=== PATIENT | male | born 1950 | race Caucasian/White ===

== ENCOUNTER 2023-04-05 06:45 | Day surgery (SDC) | payer MEDICARE, BC, SELFPAY ==
[2023-04-05] MEDS: TETRACAINE 0.5% OPHTH 1 DROP EYE-RIGHT ×2 (06:58→07:07)
[2023-04-05] MEDS: KETOROLAC OPHTH 0.5% 1 DROP EYE-RIGHT ×3 (07:04→07:20)
[2023-04-05 07:06] VITALS: BMI 25.7
[2023-04-05 07:15] VITALS: BP 116/59; PULSE 50; RESP 16; TEMP 36.5; O2SAT 96
--- NOTE | 2023-04-05 07:18 | W.ANESCHARGE ---
Anesthesia Charges Start Date/Time Anesthesia Start Date: 04/05/23 Anesthesia Start Time: 07:51 Stop Date/Time Anesthesia Stop Date: 04/05/23 Anesthesia Stop Time: 08:23 Summary Extremes of Age - Over 70 or under 1: MDA
[2023-04-05] MEDS: SODIUM CHLORIDE 0.9 % (FLUSH) 10 ML SYRINGE IVF (07:44)
--- NOTE | 2023-04-05 07:46 | SUR.PREOP ---
The eye drops brought by the patient (Ketorolac and Prednisolone) are examined and I have determined they are labeled by the patient's pharmacy for this patient as prescribed by the surgeon. The bottles are intact, recently obtained and appear to be correct.
[2023-04-05] MEDS: TETRACAINE 0.5% OPHTH 2 DROP EYE-RIGHT (07:54)
[2023-04-05] MEDS: BALANCED SALT IRRIG SOLN 15 ML EYE-RIGHT (07:57)
--- NOTE | 2023-04-05 08:01 | P.ANES_ITS ---
Anesthesia Charges Start Date/Time Anesthesia Start Date: 04/05/23 Anesthesia Start Time: 07:51 Stop Date/Time Anesthesia Stop Date: 04/05/23 Anesthesia Stop Time: 08:23 Summary Extremes of Age - Over 70 or under 1: [employer]
[2023-04-05 08:20] VITALS: BP 125/62; PULSE 50; RESP 16; TEMP 36.6; O2SAT 97
--- NOTE | 2023-04-05 09:50 | W.PM.OPTPROC ---
Procedure Note Date of procedure: 04/05/23 Will [facility] bill your pro fee for this procedure?: Yes Procedure Description: SURGEON: Marizol Urias MD PREOPERATIVE DIAGNOSIS: Nuclear sclerotic cataract, right eye. POSTOPERATIVE DIAGNOSIS: Nuclear sclerotic cataract, right eye. NAME OF OPERATION: Phacoemulsification of cataract with posterior chamber intraocular lens implantation in the right eye. ANESTHESIA: Topical. ESTIMATED BLOOD LOSS: Less than 2 cc. COMPLICATIONS: None. PATHOLOGY SPECIMEN: None. INDICATIONS: See consult note for details. The risks, benefits and alternatives of the procedure were explained to the patient, who elected to proceed and signed informed consent to do so. PROCEDURE: The patient was brought to the pre-holding area where the right eye was identified as the operative eye. I placed my initials above this eye. The patient received eye drops consisting of 0.5% tetracaine, 1% tropicamide, 10% phenylephrine, and 0.5% ketorolac. The patient was then brought to the operating room where the right eye was again identified as the operative eye. The eye was prepped with Betadine and draped in the usual sterile ophthalmic fashion. A #15 super-sharp blade was used to create a paracentesis site. 1% non-preserved intracameral lidocaine was injected into the anterior chamber. Endocoat was injected into the anterior chamber. A 2.4 mm keratome was used to create a three-plane self-sealing incision 1 mm anterior to the temporal limbus. A cystotome was used to create an anterior capsular leaflet. The Utrata forceps were used to extend this to form a continuous curvilinear capsulorrhexis. Hydrodissection was performed. The cataract was removed with phacoemulsification using the tnrihn-kse-dattzsn technique. The irrigation and aspiration tip was used to remove the remaining cortex. Healon was injected into the capsular bag. An FRANCO ZCB00 intraocular lens of 18.0 diopters was injected into the capsular bag. The irrigation and aspiration tip was used to remove the remaining viscoelastic. Balanced salt solution on a cannula was used to hydrate the wound, and the wound was found to be watertight. The pupil was noted to be round. DISPOSITION: The patient was taken to the recovery room and discharged to home in stable condition. The patient was instructed to call me or go to the emergency department with any sudden change, including dramatic loss of vision, severe pain in the eye or eyebrow region, nausea, or vomiting. The patient will follow up in the clinic tomorrow morning.
== END 2023-04-05 08:59 | disposition home or self-care (01) ==
PROVIDERS: PCP Family Medicine; Visit Provider Ophthalmology
PROC: (CPT 66984; principal; 2023-04-05 06:45)
DX: H25.11 Age-related nuclear cataract, right eye (principal)
CPT/HCPCS: 66984; 00142; 99100; A9270; J2250; J3010; V2632

== ENCOUNTER 2023-07-18 20:12 | Outpatient (CLI) | payer MEDICARE, BC, SELFPAY | END 2023-07-18 20:13 | disposition home or self-care (01) | LOC: SLEEP 20:13 | PROVIDERS: PCP Family Medicine; Visit Provider Internal Medicine | DX: G47.33 Obstructive sleep apnea (adult) (pediatric) (principal) | CPT/HCPCS: 95811 ==

== ENCOUNTER 2024-04-30 12:17 | Emergency (ER) | payer MEDICARE, BC, SELFPAY ==
[2024-04-30 12:25] VITALS: BP 112/67; PULSE 73; RESP 18; TEMP 36.8; O2SAT 95; BMI 30.1
--- NOTE | 2024-04-30 12:38 | ED_ITS ---
HPI - General Adult General Chief complaint: Fall/Minor Trauma Stated complaint: fall - hit head Time Seen by Provider: 04/30/24 12:18 History of Present Illness HPI narrative: Pt was hooking boat up, says he tripped and hit the front of his head approx 4 hours ago. Had glasses on, has cuts on his head. Bruise over left eye, says his vision is impaired. Pt is not on blood thinners. No LOC. Witnessed fall. Pain in right big toe, difficulties walking. 73-year-old man presenting to the emergency department after trip and fall event striking his head. Most injury seem to be related to his eye glasses impacting his face. There was no loss of consciousness. Apparently was attempting to step over the hitch and caught with this foot. Chronically has been having some difficulty ambulating. Has had chronic lower extremity swelling as well. Other than striking his head his major complaint is injury to his right big toe. Has been painful since this fall. He did not pass out. Is not feeling nauseated. Denies neck or back pain. Does have a history of fusions in the cervical and lumbar spine. Is not anticoagulated. No difficulty breathing. No chest or abdominal pain. I do note his knees to be scraped but he says he has thinks this is just skin. Was ambulating after. Denies double vision but blurry vision a little bit from the left eye. Clearly has hematoma in the lid and left-sided lateral subconjunctival hemorrhage. Related Data Home Medications ?Medication ?Instructions ?Recorded ?Confirmed baclofen 20 mg tablet 20 mg PO QID 04/04/23 04/30/24 ferrous sulfate 325 mg (65 mg 325 mg PO DAILY 04/04/23 04/30/24 iron) tablet (FeroSul) fluticasone propionate 50 2 spray intranasal DAILY 04/04/23 04/30/24 mcg/actuation nasal spray,suspension melatonin 5 mg capsule 5 mg PO HS 04/04/23 04/05/23 mercaptopurine 50 mg tablet 100 mg PO DAILY 04/04/23 04/05/23 montelukast 10 mg tablet 10 mg PO DAILY 04/04/23 04/30/24 sertraline 50 mg tablet 50 mg PO QAM 04/30/24 04/30/24 tamsulosin 0.4 mg capsule 0.4 mg PO DAILY 04/30/24 04/30/24 Allergies Allergy/AdvReac Type Severity Reaction Status Date / Time No Known Drug Allergies Allergy Verified 04/04/23 07:02 Review of Systems Status of ROS: Reports: 6 or more systems reviewed and unremarkable except as noted in History and below [facility] Medical History Sleep apnea ?G47.30 - Sleep apnea, unspecified (ICD-10) Ulcerative colitis ?K51.90 - Ulcerative colitis, unspecified, without complications (ICD-10) 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) Altered mental status ?R41.82 - Altered mental status, unspecified (ICD-10) Prostate cancer ?C61 - Malignant neoplasm of prostate (ICD-10) Displacement of lumbar intervertebral disc without myelopathy ?M51.26 - Other intervertebral disc displacement, lumbar region (ICD-10) 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 NAD. Two linear intradermal lacerations and the middle brow consistent with glasses placement. Left a little worse than right. Cleaning arm up they appear to be controlled bleeding. Will not require repair. There is a moderate hematoma over the left eyelid such that it is closing his eye. Manual elevation reveals equal pupils. There briskly reactive and accom modating. He does have a moderate left lateral subconjunctival hemorrhage. Extraocular movements appear to be full. Head otherwise is atraumatic. Neck is nontender. Back nontender. Is breathing easily lungs appear to be clear. Heart in regular rate and rhythm. Abdomen is overweight soft nontender. Lower extremities with light abrasions over both knees without notable swelling or limitations to flexion. Again he had been ambulating. He does have bilateral a little less than 2+ pitting edema. There is a light abrasion behind the lower right calf. The right great toe shows some bruising on the dorsal surface proximal to the IP joint. Rather tender to palpation. Mildly swollen Later re-examination does show plantar bruising of the right great toe Const: Vital Signs, click to edit/add: Vital Signs - 24 hr 04/30/24 12:25 04/30/24 14:10 04/30/24 16:05 Temperature 98.3 F Pulse Rate [Right Pulse Oximeter] 73 58 L 69 Respiratory Rate 18 18 18 Blood Pressure [Ri ght Upper Arm] 112/67 126/70 117/64 Pulse Oximetry 95 94 95 Oxygen Delivery Me thod Room Air Room Air Room Air Documenting provider has reviewed patient's vital signs: yes Course Vital Signs Vital signs: Initial Vital Signs Temperature 98.3 F 04/30/24 12:25 Temperature Source Temporal Artery Scan 04/30/24 12:25 Pulse Rate 73 04/30/24 12:25 Pulse Rhythm Regular 04/30/24 12:25 Respiratory Rate 18 04/30/24 12:25 Blood Pressure 112/67 04/30/24 12:25 Blood Pressure Mean 82 04/30/24 12:25 Blood Pressure Position Sitting 04/30/24 12:25 Pulse Oximetry 95 04/30/24 12:25 Oxygen Delivery Method Room Air 04/30/24 12:25 Vital Signs Temperature 98.3 F 04/30/24 12:25 Pulse Rate 73 04/30/24 12:25 Respiratory Rate 18 04/30/24 12:25 Blood Pressure 112/67 04/30/24 12:25 Pulse Oximetry 95 04/30/24 12:25 Oxygen Delivery Method Room Air 04/30/24 12:25 Temperature 98.3 F 04/30/24 12:25 Pulse Rate 69 04/30/24 16:05 Respiratory Rate 18 04/30/24 16:05 Blood Pressure 117/64 04/30/24 16:05 Pulse Oximetry 95 04/30/24 16:05 Oxygen Delivery Method Room Air 04/30/24 16:05 Medical Decision Making MDM Narrative Medical decision making narrative: Think it would be prudent to scan his head though likely WNL. Would like to image his right toe as well. After cleaning up his brow, no skin repair will be needed. This was apparently a trip and fall event not requiring further evaluation otherwise. He is not anticoagulated. At this time the left eye/lid hematoma is not nor is a subconjunctival hemorrhage restricting eye motion or suggesting retro orbital hematoma. Again he reports no diplopia. Spouse give some acetaminophen prior to arrival. Ice pack here. CT head by my read looks to be absent of any acute abnormality other than some hematoma in the periorbital area the left eye Radiology over-read as below Noncontrast CT of head was performed. Comparison: 04/17/2021. Findings: Brain parenchyma: Normal bush-white matter differentiation. No acute intraparenchymal hemorrhage. No mass effect or midline shift. Mild cerebral volume loss and periventricular white matter hypodensities in keeping with chronic microvascular change, similar to prior Extra-axial spaces: No extra-axial collection. Ventricular system: Unremarkable for age. Paranasal sinuses and mastoid air cells: Clear. Orbits: Globes are intact. No retrobulbar hematoma. Bones: No calvarial fracture. Left periorbital hematoma Impression: 1. Left periorbital hematoma without acute intracranial abnormality identified. 2. Mild cerebral volume loss and findings suggestive of chronic microvascular ischemic change. X-ray of the right great toe by my read is somewhat demineralized. I wonder if there might be a fracture nondisplaced subtle in the distal phalanx of the toe but looks like might be a vascular channel as well Radiology over-read as below Technique: Left foot 3 views. Comparison: None. Findings: Alignment is normal. Diffuse osseous demineralization. No evident fractures or bone lesions. Soft tissues: Unremarkable. No evident focal soft tissue swelling. Impression: No evident acute fracture or traumatic subluxation, though the diffuse osseous demineralization decreases sensitivity for the detection nondisplaced fractures. If there is persistent clinical concern for an acute fracture, this could be further evaluated with a CT. Considering the plantar bruising on the right great toe I would have more concerned about fracture. Certainly more of a problem in somebody already with some gait challenges and that this is the great toe will be sending back for CT imaging CT of the right great toe without contrast. COMPARISON: Same day radiographs. FINDINGS: Bones: Osseous demineralization. There is a nondisplaced fracture involving the great toe distal phalanx (series 4, image 34). This fracture is occult on same-day radiographs. It is difficult to determine whether intra-articular extension is present; however, no definite fracture line is seen extending into the great toe interphalangeal joint. No additional fracture is seen. Regional muscles and tendons: Tendons are normal in course and caliber. Soft tissues: Soft tissue swelling of the great toe. No soft tissue gas. IMPRESSION: Nondisplaced fracture involving the great toe distal phalanx. Considering gait challenges I did consult with orthopedics for further recommendations beyond postop sandal. Hopefully this does not affect his gait too much. Mr. Atkins does already have connection with physical therapy and occupational therapy and will be directed there for follow-up. See patient discharge plan for further discussion Medical Records Medical records reviewed: Yes I reviewed the patient's medical records Discharge Plan Discharge Clinical Impression: Closed head injury, Periorbital hematoma, Abrasion, Fracture of great toe Patient Disposition: Home w/ Parent or Adult Condition: Stable Additional Instructions: I am sorry this happened to you today. Continue to take care with ambulation. Hopefully this postop sandal does not impede your gait too much. If you find yourself more unsteady with this, might be safer not to wear at. Would expect at least 6 weeks to full healing of this toe fracture. I would ice sore areas as discussed a couple of times daily over the next few days. Be seen for new double vision, marked increase in swelling, pain around your eye. Prescriptions: No Action baclofen 20 mg tablet 20 mg PO QID ferrous sulfate [FeroSul] 325 mg (65 mg iron) tablet 325 mg PO DAILY mercaptopurine 50 mg tablet 100 mg PO DAILY montelukast 10 mg tablet 10 mg PO DAILY fluticasone propionate 50 mcg/actuation spray,suspension 2 spray INTRANASAL DAILY melatonin 5 mg capsule 5 mg PO HS tamsulosin 0.4 mg capsule 0.4 mg PO DAILY sertraline 50 mg tablet 50 mg PO QAM Follow Up/Referrals: Bisi Rouse MD [Primary Care Provider] - Stand Alone Forms: Cancer Genetics Info Instructions
--- NOTE | 2024-04-30 12:55 | CRLHL7_ITS ---
For Patients: As a result of the Century Cures Act, medical imaging exams and procedure reports are released immediately into your electronic medical record. You may view this report before your referring provider. If you have questions, please contact your health care provider. Indication: Technique: Left foot 3 views. Comparison: None. Findings: Alignment is normal. Diffuse osseous demineralization. No evident fractures or bone lesions. Soft tissues: Unremarkable. No evident focal soft tissue swelling. Impression: No evident acute fracture or traumatic subluxation, though the diffuse osseous demineralization decreases sensitivity for the detection nondisplaced fractures. If there is persistent clinical concern for an acute fracture, this could be further evaluated with a CT. Dictated by Cody Salguero MD @ 04/30/2024 1:38:39 PM (Electronically Signed)
--- NOTE | 2024-04-30 12:55 | CRLHL7_ITS ---
For Patients: As a result of the Century Cures Act, medical imaging exams and procedure reports are released immediately into your electronic medical record. You may view this report before your referring provider. If you have questions, please contact your health care provider. Indication: Fall, left eyelid hematoma. Technique: Noncontrast CT of head was performed. Comparison: 04/17/2021. Findings: Brain parenchyma: Normal bush-white matter differentiation. No acute intraparenchymal hemorrhage. No mass effect or midline shift. Mild cerebral volume loss and periventricular white matter hypodensities in keeping with chronic microvascular change, similar to prior Extra-axial spaces: No extra-axial collection. Ventricular system: Unremarkable for age. Paranasal sinuses and mastoid air cells: Clear. Orbits: Globes are intact. No retrobulbar hematoma. Bones: No calvarial fracture. Left periorbital hematoma Impression: 1. Left periorbital hematoma without acute intracranial abnormality identified. 2. Mild cerebral volume loss and findings suggestive of chronic microvascular ischemic change. Please note that all CT scans at this facility use dose modulation, iterative reconstruction, and/or weight-based dosing when appropriate to reduce radiation dose to as low as reasonably achievable. Dictated by Mary Sheikh MD @ 04/30/2024 1:43:16 PM (Electronically Signed)
[2024-04-30 14:10] VITALS: BP 126/70; PULSE 58; RESP 18; O2SAT 94
--- NOTE | 2024-04-30 14:29 | CRLHL7_ITS ---
For Patients: As a result of the Cures Act, medical imaging exams and procedure reports are released immediately into your electronic medical record. You may view this report before your referring provider. If you have questions, please contact your health care provider. INDICATION: Evaluate for fracture. TECHNIQUE: CT of the right great toe without contrast. COMPARISON: Same day radiographs. FINDINGS: Bones: Osseous demineralization. There is a nondisplaced fracture involving the great toe distal phalanx (series 4, image 34). This fracture is occult on same-day radiographs. It is difficult to determine whether intra-articular extension is present; however, no definite fracture line is seen extending into the great toe interphalangeal joint. No additional fracture is seen. Regional muscles and tendons: Tendons are normal in course and caliber. Soft tissues: Soft tissue swelling of the great toe. No soft tissue gas. IMPRESSION: Nondisplaced fracture involving the great toe distal phalanx. Please note that all CT scans at this facility use dose modulation, iterative reconstruction, and/or weight-based dosing when appropriate to reduce radiation dose to as low as reasonably achievable. Dictated by Mary Sheikh MD @ 04/30/2024 3:03:55 PM (Electronically Signed)
[2024-04-30 16:05] VITALS: BP 117/64; PULSE 69; RESP 18; O2SAT 95
== END 2024-04-30 16:09 | disposition home or self-care (01) ==
PROVIDERS: Emergency Provider Family Medicine; PCP Family Medicine
DX: S00.12XA Contusion of left eyelid and periocular area, initial encounter (principal); S92.414A Nondisplaced fracture of proximal phalanx of right great toe, initial encounter for closed fracture; W01.10XA Fall on same level from slipping, tripping and stumbling with subsequent striking against unspecified object, initial encounter
CPT/HCPCS: 70450; 73660; 73700; 99284

== ENCOUNTER 2024-06-05 15:45 | Outpatient (RCR) | payer MEDICARE, BC, SELFPAY | END 2024-10-03 23:59 | disposition home or self-care (01) | PROVIDERS: PCP Family Medicine; Visit Provider Family Medicine | DX: I69.351 Hemiplegia and hemiparesis following cerebral infarction affecting right dominant side (principal); R26.89 Other abnormalities of gait and mobility; I69.398 Other sequelae of cerebral infarction; S14.125D Central cord syndrome at C5 level of cervical spinal cord, subsequent encounter; R53.1 Weakness; Z51.89 Encounter for other specified aftercare | CPT/HCPCS: 97110; 97116; 97161; 97165; 97535 ==

== ENCOUNTER 2025-08-20 14:33 | Observation (INO) | payer MEDICARE, BC, SELFPAY ==
[2025-08-20] VITALS (20 sets, daily range): BP systolic 95–130; BP diastolic 42–63; PULSE 56–83; RESP 16–18; TEMP 36.7–36.9; O2SAT 92–97; BMI 30.1
--- OUTSIDE RECORDS SUMMARY | 2025-08-20 14:36 | XMS_ITS | Encounter Summary ---
Author Organization [place] Address [address] [place] [address]. 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 Name Role Phone Scott Light Primary Care Provider Unavailabl e Encounter Details Date Type Department Care Team (Late st Contact Info) Description 02/08/2021 External Order Results [facility] [address] [place] [id number] Outside, Provider Social History Tobacco Use Types Packs/Day Years Used Date Smoking Tobacco: Never Assessed Sex and Gender Information Value Date Recorded Sex Assigned at Not on file Legal Sex Male 1:12 PM CDT Gender Identity Not on file Sexual Orientation Not on file COVID-19 Exposure Response Date Recorded In the last month, have you been in contact with someone who was confirmed or suspected to have Coronavirus / COVID-19? No / Unsure 02/11/2021 5:40 AM CDT documented as of this encounter Plan of Treatment Not on file documented as of this encounter Procedures Procedure Name Priority Date/Time Associated Diagnosis Comments COVID-19 VIRUS (CORONAVIRUS) BY PCR (EXTERNAL RESULT) Routine 02/08/2021 2:03 PM CDT documented in this encounter Results * COVID-19 Virus (Coronavirus) by PCR (External Result) (02/08/2021 2:03 PM CDT) COVID-19 Virus by PCR (External Result) Negative Negative COVID-19 EXTERNAL RESULTS 02/08/2021 2:03 PM CDT Narrative LISA PFT - 02/09/2021 4:32 PM CDT Verified by Argelia Ferrer on 02/09/2021 TESTING LABORATORY [facility] [address] [facility] [id number] [place] Patient Reported LABORATORY Edited Result - Final CHARMAINETai PFT COVID-19 EXTERNAL RESULTS COVID-19 External Result Scanned into Patient Record by [employer] Refer to Result Comment/Narrative for exact performing laboratory [address] documented in this encounter Visit Diagnoses Not on filedocumented in this encounter Care Teams Soaking Tank Worker Relationship Specialty Start Date End Date Scott Light PCP - General Family Medicine 01/19/21 documented as of this encounter
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
--- OUTSIDE RECORDS SUMMARY | 2025-08-20 14:36 | XMS_ITS | Data Portability ---
Author Organization [place] - [facility], [facility] Address [address] [place] [address] Assessment Encounter Date Assessment Date Assessment LastModified by Organization Details LastModified Time 10/28/2020 10/28/2020 70M with high risk prostate cancer (cT1c, PSA 5.68, Carlton 4+4 = 8) I had a discussion with the patient and his Marylin about the details of robotic prostatectomy and that this will involve removing his prostate, seminal vesicles and pelvic lymph nodes. We discussed that while the goal of this operation is to cure his cancer, in some cases this is not possible and he may require additional treatments for his cancer. We discussed possible effects on urinary function including temporary and sometimes permanent incontinence and the possibility of erectile dysfunction. We discussed risks of the procedure including urine leak, lymphocele, blood loss requiring transfusion, injury to nerves, blood vessels, or bowel that could require additional procedures. We discussed risk of infection. We also discussed risks of anesthesia including blood clots, cardiopulmonary complications, and the risk of mortality. Given his ongoing issues with ulcerative colitis including the distal rectum I would also recommend waiting a period of time prior to considering surgery. There is undoubtedly a lot of inflammation in this area may make the dissection more difficult and increase the risk of rectal injury. Incidentally he has had SpaceOAR gel placed and is not clear exactly how this will alter surgical plans but presumably should not cause any undue issue as long as there is not significant adhesion to the anterior rectal wall. I have recommended that the patient continue with ADT at this time and that we follow-up in approximately 6 weeks to review how he was doing with respect to his bowel function. If he is doing much better at that time can consider scheduling robotic prostatectomy at that time. Alternatively he is still mostly interested in radiation if possible and if cleared for radiation he may proceed with that. 50 minutes total time including chart review, review of records from [facility], and discussion of treatment options particularly robotic prostatectomy with the patient and his . ginger Not available 10/28/2020 17:59:28 12/10/2020 12/10/2020 70M with high risk prostate cancer (cT1c, PSA 5.68, Maynard 4+4 = 8) He has decided to move ahead with surgery. Will be off prednisone next couple weeks hopefully. Could potentially consider RALP in 6-8 weeks if continues to do well. Discussed risks of surgery. There is undoubtedly a lot of inflammation in this area may make the dissection more difficult and increase the risk of rectal injury. Incidentally he has had SpaceOAR gel placed and is not clear exactly how this will alter surgical plans but presumably should not cause any undue issue as long as there is not significant adhesion to the anterior rectal wall. - recommend MRI prostate and PSA prior to surgery to be sure no significant change prior - RALP + PLND in 6-8 weeks 21 minutes total time including chart review, review of records from [facility], and discussion of treatment options. ginger Not available 12/10/2020 18:21:25 02/22/2021 02/22/2021 70M with [id number] 0 Carlton 3+3=6 prostate cancer s/p RALP 02/11/21 (-sms, 0/3 LN, biopsy Maynard 4+4=8, had neoadj ADT) Discussed pathology report, risk of recurrence, need for ongoing follow-up. Minimal residual disease likely from excellent response to ADT. 1) Prostate cancer - f/u 6 weeks with PSA - Sarah - he will discuss diuretics and UC with his GI provider ginger Not available 02/22/2021 15:12:31 04/07/2021 04/07/2021 70M with [id number] 0 Maynard 3+3=6 prostate cancer s/p RALP 02/11/21 (-sms, 0/3 LN, biopsy Maynard 4+4=8, had neoadj ADT). MARITA. 1) Prostate cancer - f/u 4 months with PSA 2) Left pelvic lymphocele - to [facility]; will need LLE u/s to rule out DVT, then admit for IR drain placement, possible sclerosis [email or web address] Not available 04/07/2021 14:49:04 08/05/2021 08/05/2021 70M with [id number] 0 Carlton 3+3=6 prostate cancer s/p RALP 02/11/21 (-sms, 0/3 LN, biopsy Carlton 4+4=8, had neoadj ADT). MARITA. 1) Prostate cancer - f/u 6 months with PSA, can be with Dr Jacob in [place] 2) Left pelvic lymphocele - resolved [email or web address] Not available 08/05/2021 10:32:15 Plan of Treatment Reminders Order Date Submit Date Provider Last Modified By Organization Details Last Modified Time Details Appointments None record ed. Lab PSA, serum or plasma 2020 021 [email or web address] Not available 10:32:48 PSA, serum or plasma 2020 021 [email or web address] Not available 14:03:44 Referral None record ed. Procedures None record ed. Surgeries None record ed. Imaging MRI, prosta te, w/wo contra st 2020 021 [facility] Radiology Department, [address] [place], [address], 16:19:17 Medication Orders None record ed. Patient TargetsNo targets recorded. Patient InstructionsNo instructions recorded. Reason for Referral None Reported. Results Created Date Observation Date Name Description Value Unit Range Abnormal Flag Note LastModifiedBy Organization Detail LastModifiedTime 04/07/2004/07/2021 PSA, serum or plasm a PSA, Total <0.04 Not Available [facility] [address], [place], [address], 04/07/2021 14:03:27 08/05/20 21 08/05/2021 PSA, serum or plasm a PSA, Total <0.04 ng/ml Not Available [facility] [address], [place], [address], 08/05/2021 09:58:31 02/05/20 21 02/02/2021 MRI, prost ate, w/wo contr ast No observ ation record ed. Formerly [facility] Radiology Department [address] [place], [address], 02/11/2021 14:13:40 03/09/20 21 03/03/2021 imagi ng/di agnos tic resul t No observ ation record ed. [email or web address] Not Available 2020 18:19:02 04/08/20 21 04/07/2021 CT, abdom en + pelvi s, w/ contr ast No observ ation record ed. [email or web address] Not Available 04/08 13:34:07 05/05/20 21 05/03/2021 imagi ng/di agnos tic resul t No observ ation record ed. [email or web address] Not Available 2020 09:07:35 05/05/20 21 05/03/2021 CT, pelvi s, w/o contr ast No observ ation record ed. [email or web address] Not Available 05/30 21:25:39 05/05/20 CT, abdom en + pelvi s, w/ contr ast No observ ation record ed. Not Available 05/07 15:51:55 05/05/20 21 05/03/2021 inter venti onal radio logy scler otic injec tion (PROC ) No observ ation record ed. [email or web address] Not Available 05/30 21:22:54 10/10/19 22 02/02/2021 MRI, pelvi s, w/wo contr ast No observ ation record ed. [email or web address] Raghavendra Perez MD [address] [place], [address], 10/15/2021 17:46:49 Result Notes None recorded. Problems Name Problem SNOMED Code Status Onset Date Resolution Date Notes Provider Name and Address Organization Details Recorded Time Malignant neoplasm of prostate 249474290 Active 021 Ezekiel solis MD, PHD [address] [place] [address], [place], [address], [facility] 17:59:34 Problem Notes None recorded. Procedures Surgical History Date Name Laterality Status Provider Name and Address Organization Details Recorded Time 1 Blood Draw/DRUM CARRIER/PSA RESULTS completed Leeann Buchanan [facility] 08/05/2021 09:58:27 1 Blood Draw/DRUM CARRIER/PSA RESULTS completed Ezekiel Daigle MD, PHD [address] [place] [address],[address], [place], [address], [facility] 04/07/2021 14:03:23 1 Irene Catheter Removal completed Anamika Walters [facility] 02/22/2021 14:54:57 0 Prostate Biopsy Procedure completed Dereje Jacob MD [address],[facility] [address], [place], [address], [facility] 03/17/2020 18:17:28 Imaging Results None recorded. Procedure Notes None recorded. Medical Equipment None Reported. Allergies No known drug allergies Medications Name Sig Start Date Stop Date Status Note LastModified by Organization Details LastModified Time furosemide 40 mg tablet TAKE ONE TABLET BY MOUTH EVERY MORNING active Not Available Not Available No t Available mesalamine 4 gram/60 mL enema INSERT 60 ML (4 GRAM TOTAL) INTO THE RECTUM AT BEDTIME. active Not Available Not Available No t Available bicalutamid e 50 mg tablet 10/28 completed Not Available Not Available Not Available prednisone 10 mg tablet TAKE 4 TABLETS BY MOUTH DAILY WITH A MEAL active Not Available Not Available No t Available ofloxacin 0.3 % eye drops 10/28 completed Not Available Not Available Not Available Remicade 100 mg intravenous solution Inject by intraveno us route. active Not Available Not Available No t Available ciprofloxac in 500 mg tablet 08/05 completed Not Available Not Available Not Available baclofen 20 mg tablet TAKE 1 TABLET 4 TO 5 TIMES DAILY active Not Available Not Available No t Available ketorolac 0.5 % eye drops 10/28 completed Not Available Not Available Not Available oxycodone-a cetaminophe n 5 mg-325 mg tablet 10/28 completed Not Available Not Available Not Available ceftriaxone 1 gram solution for injection Take 1 g by injection route. 10/28 completed Not Available Not Available Not Available prednisolon e acetate 1 % eye drops,suspe nsion 10/28 completed Not Available Not Available Not Available tamsulosin 0.4 mg capsule active Not Available Not Available Not Available pantoprazol e 40 mg tablet,osmany yed release 10/28 completed Not Available Not Available Not Available mercaptopur ine 50 mg tablet active Not Available Not Available Not Available montelukast 10 mg tablet TAKE 1 TABLET BY MOUTH AT BEDTIME. 10/28 completed Not Available Not Available Not Available furosemide 20 mg tablet TAKE 1 TABLET UP TO TWICE A WEEK NEEDED FOR SWELLING DUE TO PREDNISON E 04/07 completed Not Available Not Available Not Available lorazepam 1 mg tablet 10/28 completed Not Available Not Available Not Available amoxicillin 875 mg-potassiu m clavulanate 125 mg tablet 10/28 completed Not Available Not Available Not Available oxycodone 5 mg tablet TAKE ONE TABLET BY MOUTH EVERY 6 HOURS NEEDED FOR BREAK THROUGH PAIN active Not Available Not Available No t Available mesalamine 1,000 mg rectal suppository active Not Available Not Available Not Available Vitamin D active Not Available Not Cande ilable Not Available mesalamine 1.2 gram tablet,osmany yed release TAKE 4 TABLETS BY MOUTH ONCE DAILY WITH A MEAL. 04/07 completed Not Available Not Available Not Available peg 3350-electr olytes 236 gram-22.74 gram-6.74 gram-5.86 gram solution DRINK 3 QUARTS THE DAY BEFORE PROCEDURE & 1 QUART 6 HOURS PRIOR TO PROCEDURE 10/28 completed Not Available Not Available Not Available Venofer 200 mg iron/10 mL intravenous solution Inject by intraveno us route. active Not Available Not Available No t Available Vitals Date Recorded Body weight Body mass index (BMI) Body height Provider Name and Address Organization Details Last Updated DateTime 10/28/2020 40391.03 g 24.3 kg/m2 182.88 cm Paola Bullock [place] - [place] [facility] 10/28/2020 16:31:26 Date Recorded Body height Body mass index (BMI) Body weight Provider Name and Address Organization Details Last Updated DateTime 12/10/2020 182.88 cm 24.4 kg/m2 34844.63 g Juany Willingham [facility] 12/10/2020 16:34:40 Date Recorded Body height Body mass index (BMI) Body weight Respiratory rate Provider Name and Address Organization Details Last Updated DateTime 02/22/2021 182.88 cm 24.4 kg/m2 33399.63 g 16 /min Anamika Walters [facility] 02/22/2021 14:17:44 Date Recorded Body height Body mass index (BMI) Body weight Provider Name and Address Organization Details Last Updated DateTime 04/07/2021 182.88 cm 21.8 kg/m2 30866.37 g Ezekiel hyman MD, PHD [address] [place] [address] 04/07/2021 14:01:25 Date Recorded Body mass index (BMI) Body weight Provider Name and Address Organization Details Last Updated DateTime 08/05/2021 23.6 kg/m2 93736.07 g Ezekiel Daigle MD, PHD [address] [place] [address],[address] 08/05/2021 10:02:52 Date Recorded Body height Provider Name an d Address Organization Details Last Updated DateTime 08/05/2021 182.88 cm Leeann Buchanan [facility] 08/05/2021 09:57:52 Social History Question Answer Notes LastModified by Organizat ion Details LastModified Time Tobacco Smoking Status Former Smoker Sade brown [facility] 03/17/2020 16:06:04 How Much Tobacco Do You Chew? None [email or web address] Information not available 12/10/2020 [email or web address] Informatio n not available 12/10/2020 What Was The Date Of Your Most Recent Tobacco Screening? 08/05/2021 [email or web address] Information not available 08/05/2021 Sex: Unknown Functional Status Question Answer Note LastModified by Organizat ion Details LastModified Time Do you or have you ever used smokeless tobacco? Never used smokeless tobacco [email or web address] Information not available 12/10/2020 Do you or have you ever used e-cigarettes or vape? Never used electronic cigarettes [email or web address] Information not available 12/10/2020 Mental Status None recorded. Family History Relationship Description Onset Age of this Age Resolved Age Notes LastModified by Organization Details LastModified Time Father No current problems or disability Not available 16:05:59 Mother No current problems or disability [email or web address] Not available 16:05:59 Medical History Condition Response Other Y Cancer Y Bleeding Disorder Y Immunizations Vaccine Type Date Status Note Provider Nam e and Address Organization Details Recorded Time Pneumococcal conjugate PCV 13 6 completed ASHLEY [facility] 09/10/2020 09:53:16 Past Encounters Encounter ID Performer Location Encounter Start Date Encounter Closed Date Diagnosis/Indication Diagnosis SNOMED-CT Code Diagnosis ICD10 Code Diagnosis IMO Codes Diagnosis Note [id number] Dereje Jacob MD [facility] [employer] [address] [place] [address] 03/17/2020 15:49:56 03/23/2020 11:16:50 Prostate specific antigen above reference range 148851098 R97.20 [id number] Ezekiel yaets MD, PHD [facility] [employer] [address] [place] [address] 10/28/2020 16:01:11 10/30/2020 12:25:15 Malignant neoplasm of prostate 097082196 C61 [id number] Ezekiel yates MD, PHD [facility] [employer] [address] [place] [address] 12/10/2020 16:32:42 12/14/2020 10:48:18 Malignant neoplasm of prostate 586618012 C61 [id number] Ezekiel yates MD, PHD [facility] [address] [facility] [address] [place] [address] 02/22/2021 13:46:33 02/22/2021 15:20:37 Malignant neoplasm of prostate 876549786 C61 [id number] Ezekiel yates MD, PHD [facility] [employer] [address] [place] [address] 04/07/2021 12:44:09 04/08/2021 16:49:17 Malignant neoplasm of prostate 009043317 C61 [id number] Ezekiel yates MD, PHD [facility] [address] [address] 08/05/2021 09:48:27 08/09/2021 09:19:10 Malignant neoplasm of prostate 791343558 C61 Health Concerns Section Related Observation LastModified by Organization Detai ls LastModified Time None Recorded Concern Status LastModified by Organization Details LastModified Time None Recorded Advance Directives Directive None Recorded Payers Insurance Date Sequence Insurance Name Policy Number Policy Castanon Covered Member ID Castanon Member ID Guarantor Name 07/31/2021 2 [place] [employer] Alton Atkins [id number] Alton Atkins 08/09/2021 1 [facility] [id number] Alton Atkins [id number] Alton Atkins Notes Date Note Type Note Provider Name and Address Organization Details Recorded Time 10/28/2020 text/html Mr. Atkins is a 70year-old man with high-risk prostate cancer. PSA 5.68 (02/19/20) Biopsy (03/17/20): 3/12 cores, up to Carlton 4+4=8 in 20% Bone scan 03/24/20: small area uptake right posterior 8th rib CT A/P: mass effcet prostate on bladder, right posterior 8 th rib MRI 77g, lesion right TZ, no CRISTIAN, so SVI, no LAD LUTS: reduced FOS, nocturia x2-4; UDS Qmax 11 ml/sec, PVR 116, Void vol 272 ED: 01/20 Was planning on receiving radiation therapy through the [facility] so started on ADT 06/04/2020. He actually had fiducials placed and SpaceOAR placed on 10/06/2020 but subsequently developed frequent bowel movements up to 10-14 times per day. He had colonoscopy on 10/12/2019 and biopsies showing inflammation consistent with ulcerative colitis. He is started treatment for this but is not noted any improvement in his stooling frequency at this point. Because one of the areas is in the distal rectum he was advised to forego radiation therapy for his prostate cancer at this time and is here to discuss prostatectomy as an alternative option. PMH: Cervical spinal spine fracture 1998, lower extremity edema, GERDPSH: Umbilical hernia repair with mesh Ezekiel Daigle MD, PHD [address], [place], [address], [facility] 10/28/2020 18:00:24 12/10/2020 text/html Mr. Atkins is a 70 year-old man with high-risk prostate cancer. PSA 5.68 (02/19/20)Biopsy (03/17/20): 3/12 cores, up to Maynard 4+4=8 in 20% Bone scan 03/24/20: small area uptake right posterior 8th ribCT A/P: mass effect prostate on bladder, right posterior 8 th rib MRI 77g, lesion right TZ, no CRISTIAN, so SVI, no LAD LUTS: reduced FOS, nocturia x2-4; UDS Qmax 11 ml/sec, PVR 116, Void vol 272ED: 5/5 ADT: weight gain, hot flashes Was planning on receiving radiation therapy through the [facility] so started on ADT 06/04/2020. He actually had fiducials placed and SpaceOAR placed on 10/06/2020 but subsequently developed frequent bowel movements up to 10-14 times per day. He had colonoscopy on 10/12/2019 and biopsies showing inflammation consistent with ulcerative colitis. He is started treatment for this but is not noted any improvement in his stooling frequency at this point. Because one of the areas is in the distal rectum he was advised to forego radiation therapy for his prostate cancer at this time and is here to discuss prostatectomy as an alternative option. As of 12/10/20: bowel function back to normal, no more bleeding in stools, decreasing prednisone dose. Has decided to move ahead with surgery as was told radiation not advised given colitis. PMH: Cervical spinal spine fracture 1998, lower extremity edema, GERDPSH: Umbilical hernia repair with mesh This visit was conducted by telephone due to the COVID-19 crisis. Prior to conducting our telephone visit, the patient was apprised of the risks, benefits and alternatives to telephone visits including but not limited to poor audio quality, interrupted visits due to technological limitations, delays in medical evaluation and treatment due to deficiencies or failures of equipment, failure of security protocols resulting in a breach of privacy of personal medical information and a lack of access to complete medical records resulting in not fully informed decisions. Also, because of the COVID-19 pandemic, it was not possible for the patient to sign the privacy regulations, HIPAA release and assignment of benefits forms. The patient was given the opportunity to ask questions about these policies and gave verbal acknowledgement and approval of these policies as well as to hold this meeting by telephone. Lastly, the patient agreed to allowing their medication history to be pulled from a national pharmacy database to facilitate and coordinate their care. Ezekiel Daigle MD, PHD [address] [place] [address],[address], [place], [address], [facility] 12/10/2020 18:21:36 02/22/2021 text/html 70M with [id number] Maynard 3+3=6 prostate cancer s/p RALP 02/11/21 (-sms, 0/3 LN, biopsy Maynard 4+4=8, had neoadj ADT) Overall doing well since surgery. Did have flare of UC. No fevers. Stable chronic LE edema. No problems with incisions. PSA 5.68 (02/19/20)Biopsy (03/17/20): 3/12 cores, up to Maynard 4+4=8 in 20% Bone scan 03/24/20: small area uptake right posterior 8th ribCT A/P: mass effect prostate on bladder, right posterior 8 th rib MRI 77g, lesion right TZ, no CRISTIAN, so SVI, no LAD LUTS: reduced FOS, nocturia x2-4; UDS Qmax 11 ml/sec, PVR 116, Void vol 272ED: 5/ ADT: weight gain, hot flashes Ezekiel Daigle MD, PHD [address] [place] [address],[address], [place], [address], [facility] 02/22/2021 15:12:39 04/07/2021 text/html 70M with [id number] Maynard 3+3=6 prostate cancer s/p RALP 02/11/21 (-SMS, 0/3 LN, biopsy Carlton 4+4=8, had neoadj ADT) Had large left lymphocele drained. Since drain fell out he has had increased LLE swelling. Was having significant output prior to drain falling out. No fevers. Voiding ok; unable to say if he's leaking.No fevers. UF:Pre-op EF: 01/20 PSA Results:04/07/21 <0.04 Imaging (reviewed):03/24/20: Bone scan small area uptake right posterior 8th ribCT A/P: mass effect prostate on bladder, right posterior 8 th rib04/07/21 CT A/P): Large left pelvic lymphocele, extending to psoas, small fluid posterior to bladder, thickened bladder wall Ezekiel Daigle MD, PHD [address] [place] [address],[address], [place], [address], [place] [facility] 04/07/2021 14:49:52 08/05/2021 text/html 70M with [id number] Carlton 3+3=6 prostate cancer s/p RALP 02/11/21 (-SMS, 0/3 LN, biopsy Maynard 4+4=8, had neoadj ADT) Had large left pelvic lymphocele, failed sclerotherapy. Had lymphangiogram 06/03/21. Occasional testicle pain. Significant issues with UC. On remicade. Follows with [facility]. Urinary function: Control better, voids to diaper due to UC PSA Results:04/07/21 <0. <0. <0.04 Imaging (reviewed):03/24/20: Bone scan small area uptake right posterior 8th ribCT A/P: mass effect prostate on bladder, right posterior 8 th rib04/07/21 CT A/P): Large left pelvic lymphocele, extending to psoas, small fluid posterior to bladder, thickened bladder wall Ezekiel Daigle MD, PHD [address] [place] [address],[address], [place], [address], [facility] 08/05/2021 10:33:06
--- OUTSIDE RECORDS SUMMARY | 2025-08-20 14:37 | XMS_ITS | Clinical Summary ---
Author Organization [facility] Address [address] [place] [address] Care Team Providers Care Manager Of Operations Name Role Phone Unavailable Primary Care Provider Unavailabl e Source Comments You are receiving this document as you are listed as the primary care provider,follow-up provider, or the patient has been referred to you for consultation.This is in compliance with the Medicare and[facility] EHR Incentive Program,which states Providers who transition their patient to another setting of careor provider of care or refers their patient to another provider of care shouldprovide summary care record for each transition of care or referral. [facility] Allergies No known active allergies Medications acetaminophen (TYLENOL) 500 MG tablet Take 1-2 Tablets (500-1,000 mg) by mouth. Active baclofen (LIORESAL) 20 MG tablet SMARTSI Tablet(s) By Mouth 4-5 Times Daily 2 Active ferrous sulfate (AKA IRON SULFATE) 325 (65 Fe) MG enteric coated tablet Take 1 Tablet (325 mg) by mouth two times a week. 2 Active melatonin 5 MG tablet Take 1 Tablet (5 mg) by mouth. Active mercaptopurine (PURINETHOL) 50 MG tablet Take 2 Tablets (100 mg) by mouth daily. 2 Active mesalamine (CANASA) 1000 MG suppository mesalamine 1,000 mg rectal suppository Active montelukast (SINGULAIR) 10 MG tablet Take 1 Tablet (10 mg) by mouth daily. 2 Active multivitamin with minerals (THERA M PLUS) tablet Take 2 Tablets by mouth. Active predniSONE (DELTASONE) 10 MG tablet prednisone 10 mg tablet TAKE 4 TABLETS BY MOUTH DAILY WITH A MEAL Active tamsulosin (FLOMAX) 0.4 MG CAPS capsule tamsulosin 0.4 mg capsule Active vedolizumab (ENTYVIO) 300 MG SOLR injection Administer intravenously. 2 Active Social History Tobacco Use Types Packs/Day Years Used Date Smoking Tobacco: Former Cigarettes Smokeless Tobacco: Never Tobacco Cessation:Counseling Given: Not Answered Alcohol Use Standard Drinks/Week Comments Yes 0 (1 standard drink = 0.6 oz pur e alcohol) occasional Sex and Gender Information Value Date Recorded Sex Assigned at Not on file Legal Sex Male 9:38 AM HYDRAULIC MECHANIC Gender Identity Not on file Sexual Orientation Not on file Last Filed Vital Signs Vital Sign Reading Time Taken Comments Blood Pressure 91/51 09/29/2022 12:53 PM HYDRAULIC MECHANIC Pulse 71 09/29/2022 12:53 PM HYDRAULIC MECHANIC Temperature 36.3 C (97.3 F) 09/29/2022 12:53 PM HYDRAULIC MECHANIC Respiratory Rate - - Oxygen Saturation 96% 09/29/2022 12:53 PM HYDRAULIC MECHANIC Inhaled Oxygen Concentration - - Weight 88.5 kg (195 lb) 09/29/2022 12:53 PM HYDRAULIC MECHANIC Height 181.6 cm (5' 11.5) 09/29/2022 12:[address] Body Mass Index 26.82 09/29/2022 12:53 PM HYDRAULIC MECHANIC Plan of Treatment Health Maintenance Due Date Last Done Comments Hep C Screening (Preventive Services) 1950 Medicare Annual Wellness Visit 1950 RSV Vaccine (1 - 1-dose 75+ series) 2023 COVID-19 Vaccine ( season) 2025 07/26/2022, 11/28/2020, 10/31/2020 Influenza Vaccine (#1) 2025 2, 05/26/2022, 10/11/2021, Additional history exists DTaP/Tdap/Td Vaccine (3 - Tdap) 09/23/2032 09/23/2022, 10/28/2011, 04/16/1996 Pneumococcal Vaccine 50+ Yrs Completed 04/15/2016, 12/27/2013 Zoster/Shingles Vaccine Completed 09/18/19 20, 12/25/2018, 10/23/2018, Additional history exists HepA Vaccine Aged Out No longer eligi ble based on patient's age to complete this topic HepB Vaccine Aged Out No longer eligi ble based on patient's age to complete this topic Hib Vaccine Aged Out No longer eligi ble based on patient's age to complete this topic MCV4 Vaccine Aged Out No longer eligi ble based on patient's age to complete this topic Meningococcal B Vaccine Aged Out No l onger eligible based on patient's age to complete this topic Insurance [place] [address] MEDICARE MANAGED CARE [facility] [place] [facility]
--- OUTSIDE RECORDS SUMMARY | 2025-08-20 14:37 | XMS_ITS | Clinical Summary ---
Author Organization [facility] Address [address] [place] [address] Care Team Providers Care Wood Pattern Maker Name Role Phone Scott Light Primary Care Provider Unavailabl e Allergies No known active allergies Medications baclofen (LIORESAL) 20 MG tablet Take 20 mg by mouth 4 times daily Active mesalamine (LIALDA) 1.2 g EC tablet Take 4,800 mg by mouth daily (with breakfast) (4 x 1,200 mg) Active montelukast (SINGULAIR) 10 MG tablet Take 10 mg by mouth At Bedtime Active Mesalamine 4 GM/60ML SF ENEM Place rectally At Bedtime Active furosemide (LASIX) 40 MG tablet Take 40 mg by mouth every morning Active multivitamin w/minerals (MULTI-VITAMIN) tablet Take 2 tablets by mouth 2 times daily Active Probiotic Product (PROBIOTIC PO) Take 1 capsule by mouth every morning Active calcium citrate-vitamin D (CITRACAL) 315-250 MG-UNIT TABS per tablet Take 1 tablet by mouth every morning Active acetaminophen (TYLENOL) 500 MG tablet Take 500-1,000 mg by mouth daily as needed for mild pain Active carbamide peroxide (DEBROX) 6.5 % otic solution Place 5 drops into both ears daily as needed for other Active oxyCODONE (ROXICODONE) 5 MG tabletIndicatio ns:Prostate cancer (H) Take 1 tablet (5 mg) by mouth every 6 hours as needed for breakthrough pain 10 tablet 1 Active senna-docusate (SENOKOT-S/ISMA COLACE) 8.6-50 MG tabletIndicatio ns:Prostate cancer (H) Take 1-2 tablets by mouth 2 times daily as needed for constipation 30 tablet Active Active Problems Problem Noted Date Diagnosed Date Prostate cancer 02/11/2021 Social History Tobacco Use Types Packs/Day Years Used Date Smoking Tobacco: Former Cigarettes 0.5 30 Smokeless Tobacco: Never Comments:quit 1998 Alcohol Use Standard Drinks/Week Comments Yes 0 (1 standard drink = 0.6 oz pur e alcohol) 4x week Adolescent Education Answer Date Record ed Getting School Help Needed Not on file 06/10 Sex and Gender Information Value Date Recorded Sex Assigned at Not on file Legal Sex Male 1:12 PM CDT Gender Identity Not on file Sexual Orientation Not on file Last Filed Vital Signs Vital Sign Reading Time Taken Comments Blood Pressure 126/60 02/12/2021 7:39 AM CDT Pulse 67 02/12/2021 7:39 AM CDT Temperature 35.8 C (96.5 F) 02/12/2021 7:39 AM CDT Respiratory Rate 16 02/12/2021 8:00 AM CDT Oxygen Saturation 97% 02/12/2021 7:39 AM CDT Inhaled Oxygen Concentration - - Weight 81.9 kg (180 lb 8 oz) 02/11/2021 6:08 AM CDT Height 182.9 cm (6') 02/11/2021 6:08 AM CDT Body Mass Index 24.48 02/11/2021 6:08 AM CDT Plan of Treatment Not on file Insurance [facility] [place] [place] [id number] [facility] [place] [id number] MEDICARE Member Subscriber Plan / Payer (Ef fective 2001-Present) Name:Alton Atkins Member ID:[id number] Relation to Subscriber:Self Name:Alton Atkins Subscriber ID:[id number] Payer ID:[id number] Group ID:Not on file Type:Medicare Address: ATTN CLAIMS [address] [place] [address] MEDICARE BCBS [place] Advance Directives For more information, please contact: [phone] Documents on File Type Date Recorded Patient Cigarette And Filter Chief Inspector Expl anation Advance Directives and Living Will 03/18/2021 Health Care Directiv e 8-5-04 * Full Code (Latest Code Status on File) Date Activated Date Inactivated Comments 02/11/2021 1:28 PM 02/12/2021 5:05 PM All basic an d advanced life-sustaining interventions are performed as appropriate Question Answer Comments Code status determined by: Unable to dis cuss and no AD/POLST on file; continue PREVIOUSLY ORDERED code status Healthcare Agents on File Name Relationship Healthcare Agent Relationship Communication Chellyse Atkins Spouse Health Care Agent Kamlesh Atkins Son First Alternate Health Care Agent Care Teams Wood Pattern Maker Relationship Specialty Start Date End Date Scott Light PCP - General Family Medicine 01/19/21
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
[2025-08-20 15:58] LABS: Hematocrit* 36.7 % (37.0-53.0); Hemoglobin* 11.8 gm/dL (13.5-17.5); Immature Granulocytes Pct Auto 0.6 %; Mean Corpuscular HGB Conc 32 gm/dL (32-36); Mean Corpuscular Hemoglobin 30 pg (26-34); Mean Corpuscular Volume 93 fL (80-100); RDW Coefficient of Variation % 13.3 % (11.5-15.5); Red Blood Count* 3.95 m/uL (4.30-5.90); White Blood Count* 13.00 K/uL (4.50-11.00)
--- OUTSIDE RECORDS SUMMARY | 2025-08-20 16:04 | XMS_ITS | CCD ---
Author Name Interface, [id number] lity Address [address] [facility] [address] [place] [address] Organization [facility] Address [address] [facility] [address] [place] [address] Care Team Providers Care Fisher Clam Name Role Phone Leandro Barbour Unavailable Unavailable Allergies and Adverse Reactions Medication/Group Name Reaction Severity Date No known allergies Reason for Visit RC - 158 RC - 158 RC Medications Date Name Route Dose Frequency Instructions Start Date End Date Status Fill Status Indication 04/24 Baclofen Oral 4-5x daily active 04/24 Tamsulosin Oral 2.0 daily active 04/24 Multivitam ins Oral Tablet daily active 04/24 Cholecalci ferol Oral daily active 04/24 Probiotics Oral daily active 04/24 Montelukas t Oral daily active Problems Diagnosis Status Date of Diagnosis Resolution Date Prostate cancer Active 03/17/2020 Social History Date Name Value 04/24/2020 Sex Male
[2025-08-20 16:05] LABS: Immature Granulocytes Abs Auto 0.10 K/uL (0.00-0.30); Lymphocytes Absolute Auto 1.30 K/uL (0.90-2.90); Slide Review Reflex No
--- OUTSIDE RECORDS SUMMARY | 2025-08-20 16:05 | XMS_ITS | CCD ---
Author Name Interface, [id number] lity Address [address] [place] [address] [place] [address] [place] [id number] Reason for Visit Social History Date Name Value 05/17/2025 Sex Unknown
--- OUTSIDE RECORDS SUMMARY | 2025-08-20 16:05 | XMS_ITS ---
Author Name Interface, [id number] lity Address [address] [facility] [address] [address] [facility] Address [address] [facility] [address] [place] [address] Support Name Relationship Address Phone owen webber Spouse Unknown Unavailabl e Allergies and Adverse Reactions Medication/Group Name Reaction Severity Date No known allergies Plan Date Type Value 05/29/2020 APPOINTMENT RC - 158 RC - 15 8 RC 04/24/2020 APPOINTMENT KITCHEN DESIGNER - 158 PROSTAT E CA - REF DR BOLAÑOS 04/24/2020 APPOINTMENT KITCHEN DESIGNER - 158 PROSTAT E CA - REF DR BOLAÑOS Reason for Visit RC - 158 RC - 158 RC Encounters Date Name 04/24/2020 Prostate cancer Medications Date Name Route Dose Frequency Instructions Start Date End Date Status Fill Status Indication 04/24 Baclofen Oral 4-5x daily active 04/24 Montelukas t Oral daily active 04/24 Probiotics Oral daily active 04/24 Tamsulosin Oral 2.0 daily active 04/24 Multivitam ins Oral Tablet daily active 04/24 Cholecalci ferol Oral daily active Problems Diagnosis Status Date of Diagnosis Resolution Date Prostate cancer Active 03/17/2020 Vital Signs Date Type Value 04/24/2020 Heart Beat 52.00 04/24/2020 Respiratory Rate 20.00 04/24/2020 Oxygen Saturation 95.00 04/24/2020 Intravascular Systolic 104 04/24/2020 Intravascular Diastolic 58 04/24/2020 Body Temperature 97.30 04/24/2020 Weight 178.80 04/24/2020 Height 72.00 04/24/2020 BMI 24.25 04/24/2020 BSA 2.03 04/24/2020 Pain Scale 0.00
--- OUTSIDE RECORDS SUMMARY | 2025-08-20 16:05 | XMS_ITS ---
Author Name Interface, [id number] lity Address [address] [facility] [address] [address] [facility] Address [address] [facility] [address] [place] [address] Support Name Relationship Address Phone owen webber Spouse Unknown Unavailabl e Allergies and Adverse Reactions Medication/Group Name Reaction Severity Date No known allergies Plan Date Type Value 05/29/2020 APPOINTMENT RC - 158 RC - 15 8 RC 04/24/2020 APPOINTMENT BIOMED TECH - 158 PROSTAT E CA - REF DR BOLAÑOS 04/24/2020 APPOINTMENT BIOMED TECH - 158 PROSTAT E CA - REF [...]
--- OUTSIDE RECORDS SUMMARY | 2025-08-20 16:05 | XMS_ITS | CCD ---
Author Name Interface, [id number] lity Address [address] [place] [id number] [place] [address] [place] [id number] Reason for Visit Social History Date Name Value 05/17/2025 Sex Unknown
--- OUTSIDE RECORDS SUMMARY | 2025-08-20 16:05 | XMS_ITS | CCD ---
Author Name Interface, [id number] lity Address [address] [facility] [address] [place] [address] Organization [facility] Address [address] [facility] [address] [place] [address] Care Team Providers Care Bilingual Operator Name Role Phone Leandro Barbour Unavailable Unavailable [...]
[2025-08-20 16:10] LABS: Chloride* 98 mmol/L (96-114)
[2025-08-20 16:11] LABS: Potassium* 4.1 mmol/L (3.6-5.1); Sodium* 138 mmol/L (135-149)
[2025-08-20 16:13] LABS: Blood Urea Nitrogen* 54 mg/dL (7-30); Creatinine* 1.5 mg/dL (0.5-1.5); Est. Creatinine Clearance* 45.99; Estimated Glomerular Filt Rate 48 ml/min
[2025-08-20 16:14] LABS: Anion Gap 14 mEq/L (7-15); Calcium* 9.1 mg/dL (8.4-10.6); Carbon Dioxide* 26 mmol/L (20-32); Glucose* 125 mg/dL (60-115)
[2025-08-20 16:17] LABS: D Dimer Quantitative* 0.51 ug/ml (0.00-0.50)
[2025-08-20 16:18] LABS: PCR FLU A Negative PCR FLU A (Negative); PCR FLU B Negative PCR FLU B (Negative); PCR RSV Negative PCR RSV (Negative); SARS PCR* Negative SARS-CoV-2 (Negative)
[2025-08-20] MEDS: LACTATED RINGERS 1000 ML 1,000 ML IV (16:25)
--- NOTE | 2025-08-20 16:34 | CRLHL7_ITS ---
For Patients: As a result of the Century Cures Act, medical imaging exams and procedure reports are released immediately into your electronic medical record. You may view this report before your referring provider. If you have questions, please contact your health care provider. INDICATION: Right lower quadrant abdominal pain. TECHNIQUE: CT abdomen and pelvis acquired with 109 cc Isovue 370 IV contrast. COMPARISON: CT abdomen pelvis without contrast April 16, 2021. FINDINGS: Lower chest: Bibasilar atelectasis. Please see dedicated chest CT. Liver: Cysts and several subcentimeter hypodense lesions, too small to characterize. Gallbladder and bile ducts: Unremarkable Pancreas: Unremarkable Spleen: Splenule. Adrenal glands: Unremarkable Kidneys: No stones. No hydronephrosis. GI tract: Unremarkable . Normal appendix. Vasculature: Moderate to severe abdominal aortic atherosclerosis. Lymph nodes: Mildly prominent bilateral inguinal lymphadenopathy. Peritoneum/Abdominal Wall: Surgical material seen within the vicinity of the right inguinal canal, likely reflective of prior surgical intervention. Pelvis: Hypodensity which appears to be in direct communication to the apex of the urinary bladder likely reflective of a diverticulum. Punctate hyperdensity which may be reflective of a bladder calculus. Bones: Multilevel degenerative changes of the lumbar spine. IMPRESSION: No acute abdominal or pelvic pathology. Posterior bladder diverticulum with probable punctate bladder calculus. Please note that all CT scans at this facility use dose modulation, iterative reconstruction, and/or weight-based dosing when appropriate to reduce radiation dose to as low as reasonably achievable. Dictated by Kevin Molina MD @ 08/20/2025 6:12:07 PM (Electronically Signed)
--- NOTE | 2025-08-20 16:34 | CRLHL7_ITS ---
For Patients: As a result of the Century Cures Act, medical imaging exams and procedure reports are released immediately into your electronic medical record. You may view this report before your referring provider. If you have questions, please contact your health care provider. INDICATION: Shortness of breath. TECHNIQUE: CT chest without contrast. COMPARISON: None. FINDINGS: Lungs and pleura: Right upper lobe ground-glass nodular opacities concerning for infectious/inflammatory etiology. Bibasilar atelectasis. No pleural effusion. No pneumothorax. Heart and vasculature: Normal heart size. Thoracic aortic atherosclerosis.. Lymph nodes/mediastinum: Mildly prominent mediastinal lymph nodes however none of which are enlarged by size criteria. Chest wall: Unremarkable. Upper abdomen: Please see dedicated CT abdomen pelvis with contrast further evaluation.. Bones: No acute findings. IMPRESSION: Right upper lobe ground-glass nodular opacity concerning for infectious/inflammatory etiology including pneumonia. Recommend follow-up chest CT in 6-8 weeks to ensure resolution. Please note that all CT scans at this facility use dose modulation, iterative reconstruction, and/or weight-based dosing when appropriate to reduce radiation dose to as low as reasonably achievable. Dictated by Kevin Molina MD @ 08/20/2025 5:47:21 PM (Electronically Signed)
[2025-08-20] MEDS: cefTRIAXone 2 GM in 0.9 % SODIUM CHLORIDE Mini-bag 100 ML IVPB (18:28)
[2025-08-20 20:13] LABS: Chloride* 102 mmol/L (96-114); Potassium* 3.9 mmol/L (3.6-5.1); Sodium* 137 mmol/L (135-149)
[2025-08-20 20:16] LABS: Blood Urea Nitrogen* 45 mg/dL (7-30); Creatinine* 1.1 mg/dL (0.5-1.5); Est. Creatinine Clearance* 62.71; Estimated Glomerular Filt Rate 70 ml/min
[2025-08-20 20:17] LABS: Anion Gap 11 mEq/L (7-15); Calcium* 8.2 mg/dL (8.4-10.6); Carbon Dioxide* 24 mmol/L (20-32); Glucose* 120 mg/dL (60-115)
[2025-08-20] MEDS: AZITHROMYCIN 500 MG in 0.9 % SODIUM CHLORIDE 250 ml 250 ML 255 MG IVPB (20:28)
--- NOTE | 2025-08-20 21:59 | PM.IMHP1 ---
Assessment and Plan Assessment and plan (1) Pneumonia: Problem comment: -symptomatic with generalized weakness, vomited this morning (none since) -CT shows right upper lobe ground-glass nodular opacity -- outpatient follow-up CT chest in 6-8 weeks to ensure resolution recommended -WBC 13 with left shift, triple swab negative, afebrile -CRP, procalcitonin added -continue ceftriaxone and azithromycin as initiated in ED -incentive spirometry, pulmonary hygiene -PT for weakness Status: Acute (2) ANDRIY (acute kidney injury): Problem comment: -likely in setting of vomiting, acute infection -creatinine 1.5, baseline 0.8. Improved to 1.1 following IVF, recheck in a.m. Status: Acute (3) Sleep apnea: Problem comment: -unable to tolerate BiPAP -encouraged to sleep with head elevated Status: Acute Plan Likely discharge 1-2 days pending ongoing clinical improvement Total Time Spent Total Time Spent: Today I spent 75 minutes seeing the patient, reviewing Expanse and EPIC notes/diagnostics, discussing the care plan with our care time that includes social work, PT/OT, pharmacy, RT, alf and documenting my impressions and plan in the medical record. Hospitalist- H&P: HPI History of Present Illness Date Seen: 08/20/25 Chief complaint: Body weakness and vomiting Narrative: Alton Atkins is a 74 year old male past medical history significant for urinary incontinence, chronic rhinitis, ulcerative colitis, prostate cancer, cognitive impairment is admitted to medical floor from the ED for further management pneumonia. Patient is seen with at bedside. Reports feeling like he was coming down with something yesterday but was not sure what it was. No specific symptoms. Awoke this morning nauseous and vomited several times. Mostly bile. Also reports generalized weakness worsened from yesterday. Prior to past 24 hours had otherwise been feeling his normal self. Denies headaches or dizziness. Denies chest pain or shortness of breath. No wheezing. No significant cough. No reportable fevers. No abdominal pain. No change in bowels. Last BM was today. Denies UTI symptoms. ED workup showing right upper lobe pneumonia, ANDRIY. Patient and requesting admission rather than outpatient follow-up. PCP is Dr. Rouse. Occasional alcohol use. Quit smoking years ago. Full code. Review of Systems Narrative: REVIEW OF SYSTEMS: Complete review of systems performed and negative unless otherwise stated in HPI or below. Medical Decision Making Medical Decision Making Code Status: Full code Has patient completed a Health Care Directive: Yes [facility] Medical History (Updated 08/20/25 @ 22:20 by Leslee Monteiro PA-C) Peripheral edema ?R60.0 - Localized edema (ICD-10) Cognitive impairment ?R41.89 - Other symptoms and signs involving cognitive functions and awareness (ICD-10) Urinary incontinence ?R32 - Unspecified urinary incontinence (ICD-10) Depression ?F32.A - Depression, unspecified (ICD-10) Chronic rhinitis ?J31.0 - Chronic rhinitis (ICD-10) Muscle spasm ?M62.838 - Other muscle spasm (ICD-10) Sleep apnea ?G47.30 - Sleep apnea, unspecified (ICD-10) Ulcerative colitis ?K51.90 - Ulcerative colitis, unspecified, without complications (ICD-10) 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) Altered mental status ?R41.82 - Altered mental status, unspecified (ICD-10) Prostate cancer ?C61 - Malignant neoplasm of prostate (ICD-10) Displacement of lumbar intervertebral disc without myelopathy ?M51.26 - Other intervertebral disc displacement, lumbar region (ICD-10) 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, without evidence of spinal bone injury ?S14.125A - Central cord syndrome at C5 level of cervical spinal cord, initial encounter (ICD-10) Social History Smoking Status: Former smoker How often do you have a drink containing alcohol: 2-3 times a week Alcohol type: wine How many standard drinks containing alcohol do you have on a typical day: 1 or 2 AUDIT-C Alcohol total score: 3 Non-prescribed substance use: denies use service: No Meds Home Medications and Allergies Home Medications ?Medication ?Instructions ?Recorded ?Confirmed ?Type baclofen 20 mg tablet 20 mg PO QID 04/04/23 08/20/25 History ferrous sulfate 325 mg (65 mg 325 mg PO DAILY 04/04/23 08/20/25 History iron) tablet (FeroSul) fluticasone propionate 50 2 spray intranasal DAILY 04/04/23 04/30/24 History mcg/actuation nasal spray,suspension melatonin 5 mg capsule 5 mg PO HS 04/04/23 04/05/23 History mercaptopurine 50 mg tablet 100 mg PO DAILY 04/04/23 04/05/23 History montelukast 10 mg tablet 10 mg PO DAILY 04/04/23 08/20/25 History sertraline 50 mg tablet 50 mg PO QAM 04/30/24 08/20/25 History tamsulosin 0.4 mg capsule 0.4 mg PO DAILY 04/30/24 08/20/25 History Allergies Allergy/AdvReac Type Severity Reaction Status Date / Time No Known Drug Allergies Allergy Verified 08/20/25 14:57 Exam Narrative: Exam Narrative: PHYSICAL EXAM General: Pleasant, conversant, appears tired otherwise NAD HEENT: Normocephalic, atraumatic, sclera white, EOMI, oral mucosa dry Cardiovascular: RRR, S1S2. +2 pitting edema Pulmonary: CTA bilaterally without rhonchi, rales, expiratory wheezes. No dyspnea on room air Abdominal: Soft, nondistended, NTTP Neurological: Alert, answering questions appropriately, cranial nerves intact, no focal findings Extremities: No gross joint deformity or swelling. AROMI. Neurovascularly intact Skin: Warm, dry. Const: Vital Signs, click to edit/add: Vital Signs - 24 hr 08/20/25 14:52 08/20/25 14:57 08/20/25 15:00 Temperature 98.4 F Pulse Rate 58 L 61 Pulse Rate [Pulse Oximeter] 68 Respiratory Rate 16 Blood Pressure Blood Pressure [Ri ght Upper Arm] 95/53 L Pulse Oximetry 92 95 [facility] 08/20/25 15:52 08/20/25 16:01 08/20/25 16:01 Temperature Pulse Rate Pulse Rate [Pulse Oximeter] Respiratory Rate Blood Pressure 114/53 L 127/63 127/63 Blood Pressure [Ri ght Upper Arm] Pulse Oximetry [facility] 08/20/25 16:30 08/20/25 16:31 08/20/25 16:45 Temperature Pulse Rate 62 56 L 59 L Pulse Rate [Pulse Oximeter] Respiratory Rate Blood Pressure 130/55 L Blood Pressure [Ri ght Upper Arm] Pulse Oximetry 95 97 [facility] 08/20/25 17:15 08/20/25 17:30 08/20/25 17:32 Temperature Pulse Rate 68 60 56 L Pulse Rate [Pulse Oximeter] Respiratory Rate Blood Pressure 122/56 L Blood Pressure [Ri ght Upper Arm] Pulse Oximetry 97 95 93 Oxygen Delivery Me thod 08/20/25 18:07 08/20/25 18:08 08/20/25 18:15 Temperature Pulse Rate 83 74 62 Pulse Rate [Pulse Oximeter] Respiratory Rate Blood Pressure 109/52 L Blood Pressure [Ri ght Upper Arm] Pulse Oximetry 95 94 94 Oxygen Delivery Me thod 08/20/25 18:30 08/20/25 18:31 08/20/25 20:43 Temperature Pulse Rate 61 63 Pulse Rate [Pulse Oximeter] 69 Respiratory Rate 18 Blood Pressure 104/61 Blood Pressure [Ri ght Upper Arm] 114/58 L Pulse Oximetry 96 96 95 Oxygen Delivery Me thod Room Air Hospitalist - H&P: Result Labs Labs: Short CBC 08/20/25 Range/Units 15:49 WBC 13.00 H (4.50-11.00) K/uL Hgb 11.8 L (13.5-17.5) gm/dL Hct 36.7 L (37.0-53.0) % Plt Count 249 (140-440) K/uL BMP 08/20/25 08/20/25 15:49 19:37 Sodium 138 137 Potassium 4.1 3.9 Chloride 98 102 Carbon Dioxide 26 24 BUN 54 H 45 H Creatinine 1.5 1.1 Glucose 125 H 120 H Calcium 9.1 8.2 L ECG Attestation: I personally reviewed and interpreted this ECG as follows: Interpretation: NSR, ventricular rate [address] scan - chest: Attestation: I have reviewed the pertinent imaging results. Radiologist's impression: Lungs and pleura: Right upper lobe ground-glass nodular opacities concerning for infectious/inflammatory etiology. Bibasilar atelectasis. No pleural effusion. No pneumothorax. Heart and vasculature: Normal heart size. Thoracic aortic atherosclerosis.. Lymph nodes/mediastinum: Mildly prominent mediastinal lymph nodes however none of which are enlarged by size criteria. Chest wall: Unremarkable. Upper abdomen: Please see dedicated CT abdomen pelvis with contrast further evaluation.. Bones: No acute findings. IMPRESSION: Right upper lobe ground-glass nodular opacity concerning for infectious/inflammatory etiology including pneumonia. Recommend follow-up chest CT in 6-8 weeks to ensure resolution. Please note that all CT scans at this facility use dose modulation, iterative reconstruction, and/or weight-based dosing when appropriate to reduce radiation dose to as low as reasonably achievable. CT scan - abdomen: Attestation: I have reviewed the pertinent imaging results. Radiologist's impression: Lower chest: Bibasilar atelectasis. Please see dedicated chest CT. Liver: Cysts and several subcentimeter hypodense lesions, too small to characterize. Gallbladder and bile ducts: Unremarkable Pancreas: Unremarkable Spleen: Splenule. Adrenal glands: Unremarkable Kidneys: No stones. No hydronephrosis. GI tract: Unremarkable . Normal appendix. Vasculature: Moderate to severe abdominal aortic atherosclerosis. Lymph nodes: Mildly prominent bilateral inguinal lymphadenopathy. Peritoneum/Abdominal Wall: Surgical material seen within the vicinity of the right inguinal canal, likely reflective of prior surgical intervention. Pelvis: Hypodensity which appears to be in direct communication to the apex of the urinary bladder likely reflective of a diverticulum. Punctate hyperdensity which may be reflective of a bladder calculus. Bones: Multilevel degenerative changes of the lumbar spine. IMPRESSION: No acute abdominal or pelvic pathology. Posterior bladder diverticulum with probable punctate bladder calculus.
[2025-08-20 23:30] LABS: Procalcitonin* 3.53 ng/mL (<0.50)
[2025-08-21] MEDS: ENOXAPARIN 30 MG/0.3ML INJ SUBCUT (00:07)
[2025-08-21] MEDS: MONTELUKAST 10 MG TABLET PO ×2 (00:08→08:28)
[2025-08-21 02:50] VITALS: BP 108/45; PULSE 67; RESP 20; TEMP 36.5; O2SAT 92
--- NOTE | 2025-08-21 05:45 | PC.NURSE ---
End of shift report: Pt arrived?to?the floor at 2124 accompanied by his . VSS. Afebrile. On RA.?AxOx4 with intermittent confusion. Pleasant and cooperative. Ambulates 1A, GB, W. Denies pain. Denies nausea. Bed alarm on, call light within reach.??
[2025-08-21 06:27] LABS: Hematocrit* 32.7 % (37.0-53.0); Hemoglobin* 10.5 gm/dL (13.5-17.5); Mean Corpuscular HGB Conc 32 gm/dL (32-36); Mean Corpuscular Hemoglobin 30 pg (26-34); Mean Corpuscular Volume 93 fL (80-100); Red Blood Count* 3.50 m/uL (4.30-5.90); White Blood Count* 8.19 K/uL (4.50-11.00)
[2025-08-21 06:44] LABS: Slide Review Reflex No
[2025-08-21 06:49] LABS: Chloride* 103 mmol/L (96-114); Potassium* 3.6 mmol/L (3.6-5.1); Sodium* 138 mmol/L (135-149)
[2025-08-21 06:52] LABS: Blood Urea Nitrogen* 34 mg/dL (7-30); Creatinine* 0.9 mg/dL (0.5-1.5); Est. Creatinine Clearance* 68.98; Estimated Glomerular Filt Rate 89 ml/min
[2025-08-21 06:53] LABS: Anion Gap 9 mEq/L (7-15); Calcium* 8.2 mg/dL (8.4-10.6); Carbon Dioxide* 26 mmol/L (20-32); Glucose* 95 mg/dL (60-115)
[2025-08-21 07:00] VITALS: BP 143/76; PULSE 74; RESP 20; TEMP 36.7; O2SAT 93
[2025-08-21 07:56] VITALS: PULSE 74; RESP 20
[2025-08-21] MEDS: cefTRIAXone 1 GM in 0.9 % SODIUM CHLORIDE Mini-bag 100 ML IVPB (08:28)
[2025-08-21] MEDS: BACLOFEN 10 MG TABLET 20 MG PO (08:28)
[2025-08-21] MEDS: TAMSULOSIN HCL 0.4 MG CAPSULE PO (08:28)
[2025-08-21] MEDS: SERTRALINE 50 MG TABLET PO (08:28)
[2025-08-21] MEDS: SODIUM CHLORIDE 0.9 % (FLUSH) 10 ML SYRINGE 5 ML IVF (08:29)
--- NOTE | 2025-08-21 10:54 | P.DS_ITS ---
DS: Providers Provider Date Seen: 08/21/25 Date of admission: 08/20/25 21:09 Primary care physician: Bisi Rouse MD Admitting Clinician: Claire Pagan MD Consults: 08/20/25 22:59 Consult to Physical Therapy [CONS] Routine Comment: Reason(s) for PT Consult:: Evaluate and Treat Any Restrictions?:: No Restrictions Attending Physician on discharge: Claire Pagan MD DS: Diagnosis Discharge Diagnosis (1) Pneumonia: Status: Acute Problem details: -symptomatic with generalized weakness, vomited this morning (none since) -CT shows right upper lobe ground-glass nodular opacity -- outpatient follow-up CT chest in 6-8 weeks to ensure resolution recommended -WBC 13 with left shift, triple swab negative, afebrile -CRP, procalcitonin added -continue ceftriaxone and azithromycin as initiated in ED -incentive spirometry, pulmonary hygiene -PT for weakness -08/21: Patient is afebrile, not requiring oxygen. Tolerating food. ANDRIY resolved. PT evaluated him and he is not short of breath upon exertion, DC home on oral antibiotics. (2) ANDRIY (acute kidney injury): Status: Resolved Problem details: -likely in setting of vomiting, acute infection -creatinine 1.5, baseline 0.8. Improved to 1.1 following IVF, recheck in a.m. 08/21: ANDRIY resolved with IV fluids (3) Sleep apnea: Status: Acute Problem details: -unable to tolerate BiPAP -encouraged to sleep with head elevated (4) Ground glass opacity present on imaging of lung: Status: Acute Problem details: -Right upper lobe ground-glass nodular opacities concerning for infectious/inflammatory etiology. including pneumonia. Recommend follow-up chest CT in 6-8 weeks to ensure resolution. -discussed with the patient and his and they understand that they need to discuss it with their physician as an outpatient and follow-up. DS: Summary Time Spent with Patient Time attestation: Total time spent providing and/or coordinating discharge services: Exam Narrative: Exam Narrative: Physical exam GENERAL: Comfortable, no acute distress. HEAD AND NECK: Atraumatic, normocephalic CARDIOVASCULAR: RRR. Normal S1, S2. No murmurs. RESPIRATORY: Clear to auscultation B/L. Good air entry B/L. No wheezes or rhonchi. GASTROINTESTINAL: Not distended, not tender to palpation. NEUROLOGY: Alert, awake, oriented X 3. Normal speech. PSYCH: Normal mood, normal affect. Const: Vital Signs, click to edit/add: Vital Signs - 24 hr 08/20/25 14:52 08/20/25 14:57 08/20/25 15:00 Temperature 98.4 F Pulse Rate 58 L 61 Pulse Rate [Pulse Oximeter] 68 Pulse Rate [Right Pulse Oximeter] Respiratory Rate 16 Blood Pressure Blood Pressure [Le ft Arm] Blood Pressure [Ri ght Upper Arm] 95/53 L Pulse Oximetry 92 95 95 Oxygen Delivery Me od Room Air 08/20/25 15:52 08/20/25 16:01 08/20/25 16:01 Temperature Pulse Rate Pulse Rate [Pulse Oximeter] Pulse Rate [Right Pulse Oximeter] Respiratory Rate Blood Pressure 114/53 L 127/63 127/63 Blood Pressure [Le ft Arm] Blood Pressure [Ri ght Upper Arm] Pulse Oximetry Oxygen Delivery Me thod 08/20/25 16:30 08/20/25 16:31 08/20/25 16:45 Temperature Pulse Rate 62 56 L 59 L Pulse Rate [Pulse Oximeter] Pulse Rate [Right Pulse Oximeter] Respiratory Rate Blood Pressure 130/55 L Blood Pressure [Le ft Arm] Blood Pressure [Ri ght Upper Arm] Pulse Oximetry 95 97 Oxygen Delivery Me thod 08/20/25 17:15 08/20/25 17:30 08/20/25 17:32 Temperature Pulse Rate 68 60 56 L Pulse Rate [Pulse Oximeter] Pulse Rate [Right Pulse Oximeter] Respiratory Rate Blood Pressure 122/56 L Blood Pressure [Le ft Arm] Blood Pressure [Ri ght Upper Arm] Pulse Oximetry 97 95 93 Oxygen Delivery Me thod 08/20/25 18:07 08/20/25 18:08 08/20/25 18:15 Temperature Pulse Rate 83 74 62 Pulse Rate [Pulse Oximeter] Pulse Rate [Right Pulse Oximeter] Respiratory Rate Blood Pressure 109/52 L Blood Pressure [Le ft Arm] Blood Pressure [Ri ght Upper Arm] Pulse Oximetry 95 94 94 Oxygen Delivery Mi thod 08/20/25 18:30 08/20/25 18:31 08/20/25 20:43 Temperature Pulse Rate 61 63 Pulse Rate [Pulse Oximeter] 69 Pulse Rate [Right Pulse Oximeter] Respiratory Rate 18 Blood Pressure 104/61 Blood Pressure [Le ft Arm] Blood Pressure [Ri ght Upper Arm] 114/58 L Pulse Oximetry 96 96 95 Oxygen Delivery Me thod Room Air 08/20/25 21:25 08/20/25 22:33 08/20/25 22:59 Temperature 98.3 F 98.1 F Pulse Rate Pulse Rate [Pulse Oximeter] Pulse Rate [Right Pulse Oximeter] 64 56 L Respiratory Rate 18 18 18 Blood Pressure Blood Pressure [Le ft Arm] 122/61 122/42 L Blood Pressure [Ri ght Upper Arm] Pulse Oximetry 95 96 95 Oxygen Delivery Me thod Room Air Room Air Room Air 08/21/25 02:50 08/21/25 07:00 08/21/25 07:00 Temperature 97.7 F 98.0 F Pulse Rate Pulse Rate [Pulse Oximeter] Pulse Rate [Right Pulse Oximeter] 67 74 74 Respiratory Rate 20 20 20 Blood Pressure Blood Pressure [Le ft Arm] 108/45 L 143/76 H Blood Pressure [Ri ght Upper Arm] Pulse Oximetry 92 93 Oxygen Delivery Me thod Room Air Room Air 08/21/25 07:56 Temperature Pulse Rate Pulse Rate [Pulse Oximeter] Pulse Rate [Right Pulse Oximeter] 74 Respiratory Rate 20 Blood Pressure Blood Pressure [Le ft Arm] Blood Pressure [Ri ght Upper Arm] Pulse Oximetry Oxygen Delivery Me thod DS: Data Data Completed and Pending Labs on day of discharge: Labs from last 24 hours 08/21/25 08/20/25 08/20/25 06:00 22:59 19:37 WBC 8.19 RBC 3.50 L Hgb 10.5 L Hct 32.7 L MCV 93 MCH 30 MCHC 32 RDW Coeff of Mitchell Plt Count 220 Neut % (Auto) Lymph % (Auto) Henderson % (Auto) Eos % (Auto) Baso % (Auto) Neut # (Auto) Lymph # (Auto) Henderson # (Auto) Eos # (Auto) Baso # (Auto) Abs Immat Gran (auto) Imm/Tot Granulo (auto) D-Dimer Quant (PE/DVT) Sodium 138 137 Potassium 3.6 3.9 Chloride 103 102 Carbon Dioxide 26 24 Anion Gap 9 11 BUN 34 H 45 H Creatinine 0.9 1.1 Estimated Creat Clear 68.98 62.71 Estimated GFR 89 70 Glucose 95 120 H Calcium 8.2 L 8.2 L Magnesium POC Troponin I High Sensi C-Reactive Protein 8.4 H 6.6 H Procalcitonin 3.53 H SARS-CoV-2 (PCR) Influenza Type A (PCR) Influenza Type B (PCR) RSV (PCR) Lab Acknowledgement Test Added 08/20/25 08/20/25 15:49 15:05 WBC 13.00 H RBC 3.95 L Hgb 11.8 L Hct 36.7 L MCV 93 MCH 30 MCHC 32 RDW Coeff of Mitchell 13.3 Plt Count 249 Neut % (Auto) 81.5 H Lymph % (Auto) 9.8 L Henderson % (Auto) 7.9 Eos % (Auto) 0.0 Baso % (Auto) 0.2 Neut # (Auto) 10.60 H Lymph # (Auto) 1.30 Henderson # (Auto) 1.00 H Eos # (Auto) 0.00 Baso # (Auto) 0.00 Abs Immat Gran (auto) 0.10 Imm/Tot Granulo (auto) 0.6 D-Dimer Quant (PE/DVT) 0.51 H Sodium 138 Potassium 4.1 Chloride 98 Carbon Dioxide 26 Anion Gap 14 BUN 54 H Creatinine 1.5 Estimated Creat Clear 45.99 Estimated GFR 48 Glucose 125 H Calcium 9.1 Magnesium 2.2 POC Troponin I High Sensi 6.8 C-Reactive Protein Procalcitonin SARS-CoV-2 (PCR) Negative SARS-CoV-2 Influenza Type A (PCR) Negative PCR FLU A Influenza Type B (PCR) Negative PCR FLU B RSV (PCR) Negative PCR RSV Lab Acknowledgement Discharge Plan Discharge Disposition: Home w/ Parent or Adult Date of Admission: 08/20/25 21:09 Attending Provider on Discharge: Ioana Rasmussen Primary Care Provider: Bisi Rouse Anticipated Discharge Date/Time: 08/21/25 10:44 Discharge Medications: New cefdinir 300 mg capsule 300 mg PO BID Qty: 10 0RF azithromycin 500 mg tablet 500 mg PO DAILY 4 Days Qty: 4 0RF Rx Instructions: start 08/21 at 8 pm Continued baclofen 20 mg tablet 20 mg PO QID ferrous sulfate [FeroSul] 325 mg (65 mg iron) tablet 325 mg PO DAILY mercaptopurine 50 mg tablet 100 mg PO DAILY montelukast 10 mg tablet 10 mg PO DAILY melatonin 5 mg capsule 5 mg PO HS tamsulosin 0.4 mg capsule 0.4 mg PO DAILY sertraline 50 mg tablet 50 mg PO QAM Discharge Orders: Discharge Order (Routine); Ordered 08/21/25 Ordered By: Ioana Rasmussen Patient Education: Community Acquired Pneumonia (IP) Additional Instructions: You need to follow-up with your primary care physician within 1 week to discuss the following: -CT chest showed Right upper lobe ground-glass nodular opacities concerning for infectious/inflammatory etiology. including pneumonia. Recommend follow-up chest CT in 6-8 weeks to ensure resolution. -discuss with your primary care physician your new complaint of acid reflux. Activity Level: Activity as Tolerated Discharge Diet: Regular Follow Up Appointments: Bisi Rouse MD [Primary Care Provider, Family Practice] Referral Note: Right upper lobe ground-glass nodular opacities concerning for infectious/inflammatory etiology. including pneumonia. Recommend follow-up chest CT in 6-8 weeks to ensure resolution. Forms: [employer] Info Instructions
[2025-08-21 11:00] VITALS: BP 110/48; PULSE 74; RESP 18; TEMP 36.7; O2SAT 94
--- NOTE | 2025-08-21 12:19 | PC.NURSE ---
End of shift report [id number]: Pleasant and cooperative with cares. Denies any pain or shortness of breath. Denies cough. Lung sounds clear with fine crackles in right mid lobe. Alert and oriented x 4. Ambulates with SBA with walker and GB. Discharge instructions reviewed with patient and . Discharged to personal vehicle.
== END 2025-08-21 12:10 | disposition home or self-care (01) ==
LOC: ED 16:02 → MEDSURG 21:10
PROVIDERS: Physician Assistant; Admitting Provider Family Medicine; Emergency Provider Student in an Organized Health Care Education/Training Program; PCP Family Medicine; Visit Provider Family Medicine
DX: J18.9 Pneumonia, unspecified organism (principal); N17.9 Acute kidney failure, unspecified; G47.30 Sleep apnea, unspecified; R91.8 Other nonspecific abnormal finding of lung field
CPT/HCPCS: 36415; 71250; 74177; 80048; 83735; 84145; 84484; 85025; 85027; 85379; 86140; 87631; 93005; 96365; 96366; 96367; 97161; 99285; A9270; G0378; J0456; J0696; J1650; J7030; J7050; J7120; Q9967